=== PATIENT | male | born 1990 | race Caucasian/White ===

== ENCOUNTER 2016-12-04 14:24 | Day surgery (SDC) | payer MEDICARE, MEDICAID ==
[~2016-12-04] VITALS: Ht 185.4 cm; Wt 85.7 kg
[~2016-12-04 14:24] MED LIST: ALBU17IN INH; LEVA750T PO; PROA1AER IN
[2016-12-04] MEDS ORDERED: MORPHINE 4 MG/ML 1ML SYRINGE As Ordered ONE ×2 (14:52→18:39)
[2016-12-04 15:18] LABS: ANION GAP 8 MEQ/L (8-16); BLOOD UREA NITROGEN 11 MG/DL (7-18); CALCIUM LEVEL 8.9 MG/DL (8.5-10.1); CARBON DIOXIDE LEVEL 27 MEQ/L (21-32); CHLORIDE LEVEL 104 MEQ/L (98-107); CREATININE FOR GFR 0.88 MG/DL (0.70-1.30); GLOMERULAR FILTRATION RATE > 60.0 (>60); GLUCOSE, FASTING 103 MG/DL (70-105); POTASSIUM SERUM 3.7 MEQ/L (3.5-5.1); SODIUM LEVEL 139 MEQ/L (136-145)
--- NOTE | 2016-12-04 15:40 | REP ---
LEFT ANKLE SERIES: Four views of the left ankle performed. There is a comminuted fracture of the distal tibia medial aspect as well as a comminuted fracture of the distal fibula, with lateral displacement and angulation of the more distal structures. The ankle mortise is disrupted. IMPRESSION: Comminuted fractures distal tibia and fibula with lateral displacement and angulation. Ankle mortise is disrupted. Signed by Humberto Zaidi MD 12/04/2016 05:13 P
[2016-12-04 15:46] LABS: BASO # 0.4 K/mm3 (0.0-0.2); BASO % 1.5 % (0.0-1.0); EOS # 0.6 K/mm3 (0.0-0.50); EOS % 2.3 % (0.0-3.0); LARGE UNSTAINED CELL # 0.2 K/mm3 (0.0-0.4); LARGE UNSTAINED CELL % 0.6 % (0.0-4.0); LYMPH # 2.5 K/mm3 (1.5-6.5); LYMPH % 9.3 % (24.0-44.0); MEAN CORPUSCULAR HEMOGLOBIN 29.7 pg (27.0-33.0); MEAN CORPUSCULAR HGB CONC 33.3 g/dl (32.0-36.5); MEAN CORPUSCULAR VOLUME 89.1 fl (80.0-96.0); MONO # 1.3 K/mm3 (0.0-0.8); MONO % 5.2 % (0.0-5.0); NEUTROPHILS # 20.5 K/mm3 (1.8-7.7); NEUTROPHILS % 81.1 % (36.0-66.0); PLATELET COUNT, AUTOMATED 279 k/mm3 (150-450); RED CELL DISTRIBUTION WIDTH 14.2 % (11.5-14.5); WHITE BLOOD COUNT 25.2 K/mm3 (4.0-10.0)
[2016-12-04] MEDS ORDERED: fentaNYL 100 MCG/2 ML INJECTION (J3010) As Ordered ONE ×3 (16:01→20:48)
--- NOTE | 2016-12-04 17:31 | REP ---
CT study of the left ankle without contrast: History: Trimalleolar ankle fracture. Findings: Helical scanning acquired through splint material demonstrates a comminuted trimalleolar ankle fracture. The talus is subluxed posteriorly relative to the tibia. A posterior malleolar fracture is seen in the distal tibia with slight comminution. There is a comminuted medial malleolar fracture and a comminuted distal fibular fracture. There is a triangular intraarticular fracture fragment in the tibiotalar articulation. This measures 8.5 mm anterior to posterior x 2 mm cranial to caudal x 6.5 mm medial to lateral. There are at least two other tiny wafer thin intraarticular fragments in the anterior aspect of the ankle joint. The fibular fracture shows significant overriding. The proximal fragment abuts the talar dome. Coronal reformatted images demonstrate that there is lateral subluxation as well at the ankle articulation. Periarticular swelling is seen. No tarsal fracture is appreciated. Impression: There is a very comminuted and displaced trimalleolar fracture subluxation with several intra-articular bone fragments as described above. Signed by Rodriguez Vidal MD 12/04/2016 05:38 P
[2016-12-04] MEDS ORDERED: BUPIVACAINE/EPIN 0.25% 30 ML VIAL As Ordered ONE (19:28)
[2016-12-04] MEDS ORDERED: CLINDAMYCIN 600 MG/50 ML PREMIX BAG As Ordered ONE (19:28)
[2016-12-04] MEDS ORDERED: ceFAZolin 1GM INJ (J0690) As Ordered ONE (19:40)
--- NOTE | 2016-12-04 20:11 | EDDOCDS ---
Physician Documentation [facility] Name: Peña Parekh Age: 26 yrs Sex: Male : 1990 Arrival Date: 12/04/2016 Time: 14:24 Bed 11 Private MD: NO PRIMARY PHYSICIAN, . Disposition: 12/04 18:32 I have independently interviewed and examined the patient, and I agree with the br1 investigation, diagnosis and treatment plan as documented by the Resident. Disposition: 12/04/16 18:19 Hospitalization ordered by Christopher Guajardo for Inpatient Admission. Preliminary diagnosis is Displaced trimalleolar fracture of left lower leg. - Bed requested for M PED. - Status is Inpatient Admission. mlc - Condition is Stable. - Problem is new. - Symptoms are unchanged. Historical: - Allergies: Amoxicillin; PENICILLINS; - Home Meds: 1. albuterol sulfate 90 mcg/actuation Inhl HFAA 3 puffs every 4-6 hours - PMHx: Cystic Fibrosis; - PSHx: Adenoidectomy; Tonsillectomy; Ear Tubes; - Social history: Smoking status: Patient uses tobacco products, heavy tobacco smoker. No barriers to communication noted, The patient speaks fluent American, Speaks appropriately for age. - Family history: Not pertinent. - : The pt / caregiver states he / she is not on anticoagulants. Home medication list is obtained from the patient. - Exposure Risk Screening:: None identified. Vital Signs: 14:27 BP 157 / 87; Pulse 88; Resp 18; Temp 97.3(O); Pulse Ox 97% on R/A; Weight 85.73 kg / elp 189 lbs (R); Height 6 ft. 1 in. (185.42 cm) (R); Pain 10/10; 16:06 BP 142 / 84; Pulse 66; Resp 20; Pulse Ox 99% on R/A; Pain 10/10; jc4 16:26 Pulse 100 MON; Pulse Ox 96% ; ja5 16:27 Pulse 86 MON; Pulse Ox 97% ; ja5 16:27 BP 148 / 77 (auto/); ja5 16:28 BP 142 / 78 (auto/); ja5 16:30 Pain 10/10; jc4 16:45 Pulse 76 MON; Pulse Ox 98% ; ja5 17:33 BP 118 / 68 (auto/); ja5 17:48 BP 125 / 74 (auto/); mlc 17:48 Pulse 62 MON; Pulse Ox 97% ; mlc 18:40 BP 125 / 74 (auto/); mlc 18:40 Pulse 62 MON; Pulse Ox 97% ; mlc 19:23 BP 128 / 74; Pulse 57; Resp 16; Temp 99.2(TE); Pulse Ox 97% ; Pain 10/10; mlc 19:48 BP 133 / 79; Pulse 64; Resp 18; Temp 98.6; Pulse Ox 98% ; hs1 14:27 Body Mass Index 24.94 (85.73 kg, 185.42 cm) elp Procedures: 16:28 Joint Reduction: of the left ankle, using traction, manipulation. jo4 16:28 Joint Reduction: Immobilized with Plaster stirrup. Patient tolerated well. jo4 16:30 Fracture care/splinting: (Stabilizing Care) Splint applied to left leg and left ankle jo4 using tawnya wrap, Plaster stirrup. applied by Dr. Ruelas. Examined by me, post splint application: neurovascular intact, brisk capillary refill noted, Patient tolerated well. MDM: 14:36 IV Saline Lock ordered. br1 14:37 morphine 4 mg IVP once ordered. br1 14:37 Undress patient ordered. br1 14:37 NS 0.9% 1000 ml IV at 150 mL/hr continuous ordered. br1 14:37 Ankle, Complete Ordered. EDMS 14:37 CBC with Diff Ordered. EDMS 14:37 BMP Ordered. EDMS 14:38 NOTHING BY MOUTH+DIET ordered. EDMS 15:32 BMP Reviewed. jo4 16:04 fentaNYL (PF) 100 mcg IVP once ordered. br1 16:28 fentaNYL (PF) 100 mcg IVP once ordered. jo4 16:28 Misc Automatic Drilling Machine Operator Order ordered. jo4 16:38 [facility] Order complete. lbd 16:40 CT-Ankle WITHOUT CONTRAST Ordered. EDMS 16:46 CBC with Diff Reviewed. br1 16:46 Ankle, Complete Reviewed. br1 16:59 Financial registration complete. gb 17:06 [facility] Payment Agreement was scanned into [employer] and attached to record. gb 17:57 BED REQUEST+ADM ordered. EDMS 18:36 morphine 4 mg IVP once ordered. jo4 18:50 Ankle, Ap-Lat Ordered. EDMS 19:47 Admission Orders was scanned into [employer] and attached to record. ar3 Administered Medications: 14:59 Drug: morphine 4 mg [morphine 4 mg/mL intravenous cartridge (1 mL)] Route: IVP; Site: jc4 right antecubital; 16:06 Follow up: BP 142 / 84; Pulse 66 bpm; Resp 20 bpm; Pulse Ox 99% RA; Pain 08/13 Adult jc4 14:59 Drug: NS 0.9% 1000 ml [sodium chloride 0.9 % intravenous solution] Route: IV; Rate: 150 jc4 mL/hr; Site: right antecubital; 16:21 Drug: fentaNYL (PF) 100 mcg [fentanyl (PF) 50 mcg/mL injection solution (2 mL)] Route: jc4 IVP; Site: right antecubital; 16:30 Follow up: Pain 08/13 Adult jc4 16:35 Drug: fentaNYL (PF) 100 mcg [fentanyl (PF) 50 mcg/mL injection solution (2 mL)] Route: ja5 IVP; Site: right antecubital; 18:45 Drug: morphine 4 mg [morphine 4 mg/mL intravenous cartridge (1 mL)] Route: IVP; Site: ead right antecubital; Signatures: Dispatcher [employer] EDMS Anabell Roth, Order Worker Unit lbd Kaitlyn Palacios, Reg Reg gb Kay Bolton RN RN [id number] Lonnie Ruelas MD MD br1 Abeba Sepulveda, PRACTICING MD ANESTHESIOLOGIST PRACTICING MD ANESTHESIOLOGIST ar3 Ros Avilez RN RN hs1 Brittany Linares RN RN mlc Oosthuizen, Jane, DO DO jo4 Aneta Griffith RN jc4 Leanne Martinez RN, Jessica RN ja5 The chart was reviewed and I authenticate all verbal orders and agree with the evaluation and treatment provided.Attachments: 17:06 [facility] Payment Agreement gb 19:47 Admission Orders ar3 MTDD
--- NOTE | 2016-12-04 20:11 | EDDOCDS ---
Nurse's Notes [facility] Name: Peña Parekh Age: 26 yrs Sex: Male : 1990 Arrival Date: 12/04/2016 Time: 14:24 Bed 11 Private MD: NO PRIMARY PHYSICIAN, . Diagnosis: Displaced trimalleolar fracture of left lower leg Presentation: 12/04 14:29 Presenting complaint: Patient states: jumped off roof after shoveling thinking it was hs1 going to be a soft landing and missed judged and did not land in snow. + deformity +pulses. The patients lower extremity has obvious swelling present on examination. The charge nurse has been notified. The patient has been moved to a treatment area. has a possible ankle defomity on examination. The patient has been moved to a treatment area. Adult Sepsis Screening: The patient does not have new or worsening altered mentation. Patient's respiratory rate is less than 22. Systolic blood pressure is greater than 100. Patient has a qSOFA score of 0- Negative Sepsis Screen. Suicide/Homicide risk assessment- the patient denies having any suicidal and/or homicidal ideations and does not present with any other emotional, behavioral or mental health complaints. Status: Patient is not a social services director or dependent. Transition of care: patient was not received from another setting of care. 14:29 Acuity: CLOVER Level 2 hs1 14:29 Method Of Arrival: Walkin/Carried/Asstd hs1 Triage Assessment: 14:31 General: Appears uncomfortable, Behavior is anxious, cooperative. Pain: Location: left hs1 medial ankle and anterior aspect of left ankle Pain currently is 10 out of 10 on a pain scale. HIV screening NA for this visit Offered previously. Respiratory: Airway is patent. Musculoskeletal: Capillary refill is sluggish Bony deformity noted of left ankle Reports. Historical: - Allergies: Amoxicillin; PENICILLINS; - Home Meds: 1. albuterol sulfate 90 mcg/actuation Inhl HFAA 3 puffs every 4-6 hours - PMHx: Cystic Fibrosis; - PSHx: Adenoidectomy; Tonsillectomy; Ear Tubes; - Social history: Smoking status: Patient uses tobacco products, heavy tobacco smoker. No barriers to communication noted, The patient speaks fluent Malian, Speaks appropriately for age. - Family history: Not pertinent. - : The pt / caregiver states he / she is not on anticoagulants. Home medication list is obtained from the patient. - Exposure Risk Screening:: None identified. Screenin:32 Screening information is obtained from the patient. Fall risk: No risks identified. hs1 Assistance ADL's: requires no assistance with activities of daily living. Abuse/DV Screen: The patient / caregiver reports he/she is: not in a situation that causes fear, pain or injury. Nutritional screening: No deficits noted. Advance Directives: There is no active DNR order. home support is adequate. Assessment: 14:56 General: Appears uncomfortable, Behavior is cooperative. Pain: Location: left medial ja5 ankle Pain currently is 10 out of 10 on a pain scale. Neurological: Level of Consciousness is awake, alert, Oriented to person, place, time. Cardiovascular: Capillary refill < 3 seconds. Cardiovascular: Pulses are all present. Left dorsalis pedis pulse present by doppler. Respiratory: Airway is patent Respiratory effort is even, unlabored. Derm: Skin is pink, warm & dry. Musculoskeletal: Swelling present in left medial ankle Signs and Symptoms of Compartment Syndrome:. 15:01 General: Left lower extremity is currently elevated with two pillows.. Musculoskeletal: ja5 Capillary refill < 3 seconds. 16:06 General: Pt lying on stretcher with left leg elevated on 2 pillows. Pt states that pain jc4 is not improved and is currently "10/10" at this time. IVF infusing well. Significant other at bedside. 16:36 General:. ja5 16:39 General: Splint placement with Lonnie Ruelas MD and Aniyha Wright DO done at ja5 bedside. Patient was given 100mcg fentanyl prior to procedure. Patient was still in pain after procedure and another 100 mcg of fentanyl was ordered. Patient is now resting, states that pain medication is helping. Family at bedside. . 17:40 General: Patient resting in stretcher with left leg elevated. He states that his pain ja5 is rising back up to a 7/10. . 19:23 General: Appears in no apparent distress, comfortable, Behavior is cooperative. mlc General: IV fluids infusing per order. . Pain: Pain currently is 10 out of 10 on a pain scale. Neurological: Level of Consciousness is awake, alert, Oriented to person, place, time. Cardiovascular: Capillary refill < 3 seconds in left toes. Respiratory: Airway is patent Respiratory effort is even, unlabored, Respiratory pattern is regular. 19:49 General: Appears in no apparent distress, comfortable, Behavior is cooperative. mlc Neurological: Level of Consciousness is awake, alert, Oriented to person, place, time. Respiratory: Airway is patent Respiratory effort is even, unlabored, Respiratory pattern is regular. Derm: Skin is pink, warm & dry. Vital Signs: 14:27 BP 157 / 87; Pulse 88; Resp 18; Temp 97.3(O); Pulse Ox 97% on R/A; Weight 85.73 kg (R); elp Height 6 ft. 1 in. (185.42 cm) (R); Pain 10/10; 16:06 BP 142 / 84; Pulse 66; Resp 20; Pulse Ox 99% on R/A; Pain 10/10; jc4 16:26 Pulse 100 MON; Pulse Ox 96% ; ja5 16:27 Pulse 86 MON; Pulse Ox 97% ; ja5 16:27 BP 148 / 77 (auto/); ja5 16:28 BP 142 / 78 (auto/); ja5 16:30 Pain 10/10; jc4 16:45 Pulse 76 MON; Pulse Ox 98% ; ja5 17:33 BP 118 / 68 (auto/); ja5 17:48 BP 125 / 74 (auto/); mlc 17:48 Pulse 62 MON; Pulse Ox 97% ; mlc 18:40 BP 125 / 74 (auto/); mlc 18:40 Pulse 62 MON; Pulse Ox 97% ; mlc 19:23 BP 128 / 74; Pulse 57; Resp 16; Temp 99.2(TE); Pulse Ox 97% ; Pain 10/10; mlc 19:48 BP 133 / 79; Pulse 64; Resp 18; Temp 98.6; Pulse Ox 98% ; hs1 14:27 Body Mass Index 24.94 (85.73 kg, 185.42 cm) elp Vitals: 14:27 Log In Time: December 04, 2016 at 14:25. RN notified that patient meets Red Flag elp criteria. ED Course: 14:26 Patient visited by Hui Beck PCA. elp 14:26 NO PRIMARY PHYSICIAN, . is Private Physician. elp 14:26 Patient moved to Waiting elp 14:27 Patient visited by Hui Beck PCA. elp 14:30 Triage Initiated hs1 14:33 Aneta Griffith RN is Primary Nurse. hs1 14:33 Patient moved to 11 hs1 14:43 Aniyah Wright DO is PHCP. jo4 14:44 Lonnie Ruelas MD is Attending Physician. jo4 14:51 BMP Sent. jc4 14:51 CBC with Diff Sent. jc4 15:00 Patient visited by Aneta Griffith RN. jc4 15:00 Inserted saline lock: 18 gauge in right antecubital area The patient tolerated the jc4 procedure well. 15:02 Patient visited by Mandy Bartlett RN. ja5 15:12 Patient visited by Aniyah Wright DO. jo4 15:12 Patient visited by Aniyah Wright DO. jo4 15:18 Patient visited by Lonnie Ruelas MD. br1 16:08 Patient visited by Aneta Griffith RN. jc4 16:14 Ankle, Complete Returned. EDMS 16:30 Assist provider with fracture care of left medial ankle. ja5 16:36 Patient visited by Mandy Bartlett RN. ja5 17:02 Primary Nurse role handed off by Aneta Griffith RN jc4 17:06 [facility] Payment Agreement was scanned into [employer] and attached to record. gb 17:14 Ankle, Complete Returned. EDMS 17:32 Patient visited by Bruna Riggs PCA. ct3 17:41 Patient visited by Mandy Bartlett RN. ja5 18:02 Patient visited by Kennedi Chicas. lr2 18:02 Warm blanket given. lr2 18:10 The patient / caregiver is instructed regarding the plan of care and ED course. Patient ead has correct armband on for positive identification. Placed in gown. Bed in low position. Call light in reach. Side rails up X2. Adult w/ patient. Pulse ox on. NIBP on. Warm blanket given. 18:16 CT-Ankle WITHOUT CONTRAST Returned. EDMS 18:18 Christopher Guajardo is Hospitalizing Provider. jo4 19:23 Brittany Linares,RN is Primary Nurse. mlc 19:25 Patient visited by Brittany Linares RN. mlc 19:47 Admission Orders was scanned into [employer] and attached to record. ar3 Administered Medications: 14:59 Drug: morphine 4 mg [morphine 4 mg/mL intravenous cartridge (1 mL)] Route: IVP; Site: jc4 right antecubital; 16:06 Follow up: BP 142 / 84; Pulse 66 bpm; Resp 20 bpm; Pulse Ox 99% RA; Pain 10 Adult 4 14:59 Drug: NS 0.9% 1000 ml [sodium chloride 0.9 % intravenous solution] Route: IV; Rate: 150 jc4 mL/hr; Site: right antecubital; 16:21 Drug: fentaNYL (PF) 100 mcg [fentanyl (PF) 50 mcg/mL injection solution (2 mL)] Route: jc4 IVP; Site: right antecubital; 16:30 Follow up: Pain 08/13 Adult 4 16:35 Drug: fentaNYL (PF) 100 mcg [fentanyl (PF) 50 mcg/mL injection solution (2 mL)] Route: ja5 IVP; Site: right antecubital; 18:45 Drug: morphine 4 mg [morphine 4 mg/mL intravenous cartridge (1 mL)] Route: IVP; Site: ead right antecubital; Order Results: Lab Order: CBC with Diff; SPEC'M 12/04/16 14:48 Test: WHITE BLOOD COUNT; Value: 25.2; Range: 4.0-10.0; Abnormal: Above high normal; Units: K/mm3; Status: F Test: RED BLOOD COUNT; Value: 5.04; Range: 4.30-6.10; Units: M/mm3; Status: F Test: HEMOGLOBIN; Value: 15.0; Range: 14.0-18.0; Units: g/dl; Status: F Test: HEMATOCRIT; Value: 44.9; Range: 42.0-52.0; Units: %; Status: F Test: MEAN CORPUSCULAR VOLUME; Value: 89.1; Range: 80.0-96.0; Units: fl; Status: F Test: MEAN CORPUSCULAR HEMOGLOBIN; Value: 29.7; Range: 27.0-33.0; Units: pg; Status: F Test: MEAN CORPUSCULAR HGB CONC; Value: 33.3; Range: 32.0-36.5; Units: g/dl; Status: F Test: RED CELL DISTRIBUTION WIDTH; Value: 14.2; Range: 11.5-14.5; Units: %; Status: F Test: PLATELET COUNT, AUTOMATED; Value: 279; Range: 150-450; Units: k/mm3; Status: F Test: NEUTROPHILS %; Value: 81.1; Range: 36.0-66.0; Abnormal: Above high normal; Units: %; Status: F Test: LYMPH %; Value: 9.3; Range: 24.0-44.0; Abnormal: Below low normal; Units: %; Status: F Test: MONO %; Value: 5.2; Range: 0.0-5.0; Abnormal: Above high normal; Units: %; Status: F Test: EOS %; Value: 2.3; Range: 0.0-3.0; Units: %; Status: F Test: BASO %; Value: 1.5; Range: 0.0-1.0; Abnormal: Above high normal; Units: %; Status: F Test: LARGE UNSTAINED CELL %; Value: 0.6; Range: 0.0-4.0; Units: %; Status: F Test: NEUTROPHILS #; Value: 20.5; Range: 1.8-7.7; Abnormal: Above high normal; Units: K/mm3; Status: F Test: LYMPH #; Value: 2.5; Range: 1.5-6.5; Units: K/mm3; Status: F Test: MONO #; Value: 1.3; Range: 0.0-0.8; Abnormal: Above high normal; Units: K/mm3; Status: F Test: EOS #; Value: 0.6; Range: 0.0-0.50; Abnormal: Above high normal; Units: K/mm3; Status: F Test: BASO #; Value: 0.4; Range: 0.0-0.2; Abnormal: Above high normal; Units: K/mm3; Status: F Test: LARGE UNSTAINED CELL #; Value: 0.2; Range: 0.0-0.4; Units: K/mm3; Status: F Lab Order: [facility]; SPEC'M 12/04/16 14:48 Test: GLUCOSE, FASTING; Value: 103; Range: 70-105; Units: MG/DL; Status: F Test: BLOOD UREA NITROGEN; Value: 11; Range: 7-18; Units: MG/DL; Status: F Test: CREATININE FOR GFR; Value: 0.88; Range: 0.70-1.30; Units: MG/DL; Status: F Test: GLOMERULAR FILTRATION RATE; Value: > 60.0; Range: >60; Status: F Test: SODIUM LEVEL; Value: 139; Range: 136-145; Units: MEQ/L; Status: F Test: POTASSIUM SERUM; Value: 3.7; Range: 3.5-5.1; Units: MEQ/L; Status: F Test: CHLORIDE LEVEL; Value: 104; Range: 98-107; Units: MEQ/L; Status: F Test: CARBON DIOXIDE LEVEL; Value: 27; Range: 21-32; Units: MEQ/L; Status: F Test: ANION GAP; Value: 8; Range: 8-16; Units: MEQ/L; Status: F Test: CALCIUM LEVEL; Value: 8.9; Range: 8.5-10.1; Units: MG/DL; Status: F Test Note: ; Units are mL/min/1.73 m2 Chronic Kidney Disease Staging per NKF: Stage I & II GFR >=60 Normal to Mildly Decreased Stage III GFR 30-59 Moderately Decreased Stage IV GFR 15-29 Severely Decreased Stage V GFR <15 Very Little GFR Left ESRD GFR <15 on SOFA COVER INSPECTOR Radiology Order: Ankle, Complete Test: Ankle, Complete REASON FOR EXAMINATION: Trauma; LEFT ANKLE SERIES:; ; Four views of the left ankle performed. There is a comminuted fracture of the; distal tibia medial aspect as well as a comminuted fracture of the distal fibula,; with lateral displacement and angulation of the more distal structures. The; ankle mortise is disrupted.; ; IMPRESSION:; ; Comminuted fractures distal tibia and fibula with lateral displacement and; angulation. Ankle mortise is disrupted.; ; ; Signed by; Humberto Zaidi MD 12/04/2016 05:13 P; Radiology Order: CT-Ankle WITHOUT CONTRAST Test: CT-Ankle WITHOUT CONTRAST REASON FOR EXAMINATION: TRAUNMA; CT study of the left ankle without contrast:; ; History: Trimalleolar ankle fracture.; ; Findings: Helical scanning acquired through splint material demonstrates a; comminuted trimalleolar ankle fracture. The talus is subluxed posteriorly; relative to the tibia. A posterior malleolar fracture is seen in the distal; tibia with slight comminution. There is a comminuted medial malleolar fracture; and a comminuted distal fibular fracture. There is a triangular intraarticular; fracture fragment in the tibiotalar articulation. This measures 8.5 mm anterior; to posterior x 2 mm cranial to caudal x 6.5 mm medial to lateral. There are at; least two other tiny wafer thin intraarticular fragments in the anterior aspect; of the ankle joint. The fibular fracture shows significant overriding. The; proximal fragment abuts the talar dome. Coronal reformatted images demonstrate; that there is lateral subluxation as well at the ankle articulation.; Periarticular swelling is seen. No tarsal fracture is appreciated.; ; Impression:; ; There is a very comminuted and displaced trimalleolar fracture subluxation with; several intra-articular bone fragments as described above.; ; ; Signed by; Rodriguez Vidal MD 12/04/2016 05:38 P; Outcome: 18:19 Decision to Hospitalize by Provider. jo4 19:49 Discharge Assessment: Patient awake, alert and oriented x 3. No cognitive and/or mlc functional deficits noted. Patient verbalized understanding of disposition instructions. patient administered narcotics - yes. Patient was admitted to the hospital or transferred to another facility. The following High Risk Discharge criteria are identified: None. Admitted to OR accompanied by nurse, accompanied by tech, via stretcher, with chart. Condition: good Condition: stable. CT Study completed. Property :Personal belongings accompany Pt. 20:10 [place]. [facility] [place] Signatures: Dispatcher [employer] EDMS Kaitlyn Palacios, Reg Reg gb Lonnie Ruelas MD MD br1 Abeba Sepulveda, MAIL DELIVERER MAIL DELIVERER ar3 Ros Avilez RN RN hs1 Aneta Griffith RN RN jc4 Bruna Riggs, MAIL DELIVERER MAIL DELIVERER ct3 Hui eBck, MAIL DELIVERER MAIL DELIVERER elp Leanne MartinezRN RN Brittany Ivy RN RN [facility] Aniyah Wright DO DO jo4 Mandy BartlettRN RN ja5 Kennedi Chicas lr2 Corrections: (The following items were deleted from the chart) 16:54 16:39 General: Splint placement with Dr. Ruelas and Dr. Wright done at bedside. estelle Patient was given 100mcg fentanyl prior to procedure. Patient was still in pain after procedure and another 100 mcg of fentanyl was ordered. Patient is now resting, states that pain medication is helping. Family at bedside. . estelle 16:55 16:30 Assist provider with reduction of left ankle using manipulation, Performed by estelle mccabe MTDTariq
[2016-12-04] MEDS ORDERED: PROPOFOL 200 MG/20 ML VIAL As Ordered ONE ×4 (20:48→21:37)
[2016-12-04] MEDS ORDERED: MIDAZOLAM INJ 2 MG/2 ML VIAL (J2250) As Ordered ONE (20:48)
[2016-12-04] MEDS ORDERED: BUPIVACAINE/EPIN 0.25% 30 ML VIAL XX ONE (21:10)
[2016-12-04] MEDS ORDERED: CLINDAMYCIN INJ 900MG/6ML VIAL XX ONE (21:10)
[2016-12-04] MEDS ORDERED: LR 1,000 ML IV SCH (22:30)
[2016-12-04] MEDS ORDERED: fentaNYL 100 MCG/2 ML INJECTION (J3010) IV PRN (22:30)
[2016-12-04] MEDS ORDERED: PROMETHAZINE INJ 25 MG/ML VIAL (J2550) IV PRN (22:30)
[2016-12-04] MEDS ORDERED: ONDANSETRON 4MG/2ML VIAL (J2405) IV PRN (22:30)
[2016-12-04] MEDS ORDERED: D5W/LR 1,000 ML IV SCH (22:30)
[2016-12-04] MEDS ORDERED: PERCOCET 5MG/325MG TAB PO PRN ×2 (22:30)
[2016-12-04] MEDS ORDERED: ALBUTEROL 90 MCG/ACT 8GM HFA INHALER INH PRN (22:30)
[2016-12-04] MEDS ORDERED: MORPHINE 2 MG/ML 1ML SYRINGE IV PRN (22:30)
[2016-12-04] MEDS ORDERED: HYDROmorphone HCL 1 MG/ML SYRINGE (J1170) IV PRN (22:30)
[2016-12-04 23:00] VITALS: BP 115/57
[2016-12-04 23:30] VITALS: BP 111/62
[2016-12-05] MEDS: DOCUSATE SODIUM 100 MG CAP PO SCH ×2 (00:21→08:21)
[2016-12-05] MEDS: ASCORBIC ACID 500 MG TAB PO SCH ×2 (00:21→08:22)
--- NOTE | 2016-12-05 00:22 | RO ---
DATE OF PROCEDURE: 12/04/2016 PREOPERATIVE DIAGNOSIS: Left ankle trimalleolar fracture. POSTOPERATIVE DIAGNOSIS: Left ankle trimalleolar fracture. PROCEDURE PERFORMED: Open reduction internal fixation of left ankle trimalleolar fracture-dislocation, fixation of the medial malleolus and lateral malleolus. SURGEON: Dr. White FASTENER SEWING MACHINE OPERATOR: ANESTHESIA: Dr. Ariza ESTIMATED BLOOD LOSS: Less than 50 mL. Spinal anesthesia was utilized. No complications. No tourniquet inflated. COMPONENTS USED: Include Synthes 7-hole one-third tubular plate and the appropriate screws. On the medial malleolus, we utilized 4.0 cannulated screws , 38 mm times two with washers. Consent reviewed in detail with the patient including a pablo discussion of the procedure proposed, alternatives including doing nothing and risks including, but not limited to, pain, failure, stiffness, post-traumatic arthritis, limp, infection, need for more surgery and other issues. The patient agreed to proceed with surgery. DESCRIPTION OF PROCEDURE: Identified in the holding area, site and side verified, brought to the operating room, spinal anesthesia was administered. He was positioned for exposure of the left lower extremity. Tourniquet was not inflated. He was prepped and draped. Once we began the procedure, we outlined the incision using a marking pen, infiltrated with 0.25% Marcaine with epinephrine at the lateral aspect of medial malleolus as well. A 3 cm incision over the medial malleolus was utilized and a 10 cm incision over the lateral malleolus was utilized. This was developed down through skin and subcuticular tissues to the surface of the fibula bone. Next, there was some small comminuted fragments, and these were devitalized and they were discarded. Next, I was able to reduce the fibula by using the fracture reduction clamps, and I was able to place an AP lag screw . We visualized this portion of the reduction using fluoroscopy and reduction of the fibula seemed to anatomically reduce the medial malleolus. Next, a 7-hole plate was selected, and I drilled and placed the appropriate cortical and cancellous screws. Cortical proximal and cancellous distal, three dual cortices screw above the fracture and three below the fracture, cancellous. Next, once this was accomplished, we again obtained x-rays, including a lateral x-ray. Lateral x-ray revealed reduction of the posterior malleolar component anatomically. Next, irrigation was accomplished. Next, attention was turned to the medial malleolus, incision was made with a 15 blade knife, anteromedial to the medial malleolus and developed down through skin and subcuticular tissues. The deltoid ligament was significantly strained and injured, and it was split to allow exposure of the medial malleolar fragment. The medial malleolar fragment had been reasonably reduced by reduction of the fibula, so it was further reduced with a Hayti and then I passed two guidewires through the medial malleolus into the proximal fragment of the distal tibia. Next, these were measured for a size 38 screws and I overdrilled and placed size 38 mm cancellous screws, transfixing the medial malleolus. Final fluoroscopic images were obtained. The mortise was found to be reduced. The fracture seemed to be nearly anatomically reduced. Wounds were irrigated, closed with interrupted stitch and samia, sterile dressing was applied, cast applied. The patient was moved to the recovery room at the conclusion of case, having tolerated the case well. The patient received preoperative Kefzol antibiotics. DMITRI
[2016-12-05 00:30] VITALS: BP 140/83
[2016-12-05] MEDS: PERCOCET 5MG/325MG TAB PO PRN ×3 (00:36→08:23)
[2016-12-05 01:30] VITALS: BP 123/57
[2016-12-05 02:30] VITALS: BP 123/55
[2016-12-05] MEDS: HYDROmorphone HCL 1 MG/ML SYRINGE (J1170) IV PRN ×2 (03:43→06:16)
[2016-12-05 04:00] VITALS: BP 124/68
[2016-12-05] MEDS ORDERED: PERC5TAB6 PO (05:55)
[2016-12-05] MEDS ORDERED: ASPI325T PO (05:55)
[2016-12-05 07:12] LABS: BASO # 0.1 K/mm3 (0.0-0.2); BASO % 0.4 % (0.0-1.0); EOS # 0.5 K/mm3 (0.0-0.50); EOS % 2.7 % (0.0-3.0); LARGE UNSTAINED CELL # 0.2 K/mm3 (0.0-0.4); LARGE UNSTAINED CELL % 1.2 % (0.0-4.0); LYMPH # 2.7 K/mm3 (1.5-6.5); LYMPH % 15.3 % (24.0-44.0); MEAN CORPUSCULAR HEMOGLOBIN 29.2 pg (27.0-33.0); MEAN CORPUSCULAR HGB CONC 32.8 g/dl (32.0-36.5); MEAN CORPUSCULAR VOLUME 89.1 fl (80.0-96.0); MONO # 1.1 K/mm3 (0.0-0.8); MONO % 6.2 % (0.0-5.0); NEUTROPHILS # 13.1 K/mm3 (1.8-7.7); NEUTROPHILS % 74.2 % (36.0-66.0); PLATELET COUNT, AUTOMATED 223 k/mm3 (150-450); RED CELL DISTRIBUTION WIDTH 13.3 % (11.5-14.5); WHITE BLOOD COUNT 17.7 K/mm3 (4.0-10.0)
[2016-12-05 08:00] VITALS: BP 146/74
--- NOTE | 2016-12-05 08:30 | REP ---
LEFT ANKLE SERIES: Six views intraoperative. HISTORY: Left ankle fracture. Fluoroscopy time is reported as 31 seconds. FINDINGS: A sequence of six fluoroscopically obtained last image hold spot images of the left ankle document open reduction and internal fixation of the trimalleolar left ankle fracture dislocation in good anatomic alignment. Screw plate fixation device is seen in the distal fibula and two metallic screws are seen in the medial malleolus. The ankle mortise is well aligned. Signed by Rodriguez Vidal MD 12/05/2016 08:41 A
--- NOTE | 2016-12-05 08:39 | REP ---
Left ankle series: Two views. History: Evaluate hardware. Comparison study December 04, 2016 showed a trimalleolar comminuted fracture dislocation of the left ankle. Findings: AP and lateral views obtained in plaster demonstrate screw plate fixation of the distal fibula and medial malleolar screws. The ankle mortise is intact. The fracture is reduced. There is some lateral and medial skin samia. Diffuse mild soft tissue swelling. Signed by Rodriguez Vidal MD 12/05/2016 08:41 A
--- NOTE | 2016-12-05 17:27 | ER ---
DATE OF CONSULTATION: 12/04/2016 REASON FOR CONSULTATION: Left ankle pain. HISTORY OF PRESENT ILLNESS: This is a 26-year-old male with a history of cystic fibrosis and smoking two packs of cigarettes daily who was cleaning the snow off of his garage. He admitted that he jumped off the garage and missed the pile of snow. In fact he admitted that he was trying to do a front flip off the garage, missed the pile of snow and hit the ground, and injured the ankle on the left side. He is disabled he says because of a learning disability and because of his cystic fibrosis. Admits he does not normally take pain control medications. He does use albuterol inhaler from time to time. He has had a number of bouts of pneumonia. He is not currently short of breath. He is not complaining of numbness or tingling, only of ankle pain on the left side. He is not complaining of back pain or neck pain right now. I have reviewed nursing notes and medical records as provided by the ER. The patient was accompanied to the emergency room (ER) by spouse. REVIEW OF SYSTEMS: 12-point review of systems negative day. SOCIAL HISTORY: Reports two pack smoking history. MEDICATIONS: Albuterol nebulizers as needed for wheeze. PAST SURGICAL HISTORY: Negative. ALLERGIES: PENICILLIN causes hives, KEFZOL has been tolerated in the past. IMAGING STUDIES: There is a fracture/dislocation of the left ankle with a posterior malleolar component. CT scan also reviewed. There is a comminuted trimalleolar fracture. The posterior malleolar fragment is less than 10%. IMPRESSION: Left ankle fracture/dislocation in a 26-year-old male. RECOMMENDATIONS: Recommendations include open reduction internal fixation of the left ankle fracture/dislocation. I reviewed the consent document with the patient including a pablo discussion of the pathology involved, the procedure proposed, alternatives including doing nothing, risks including but not limited to pain, failure, stiffness, infection, need for more surgery, post-traumatic arthritis, and other issues. I advised the patient also to quit smoking. I advised the patient to have spinal anesthesia for the case. I coordinated the patient's care and the CT imaging with the ER personnel. I coordinated the patient's surgical scheduling with the OR personnel and anesthesia team. I had a discussion with Dr. Ariza, the anesthesiologist with respect to anesthetic management of this patient with a spinal anesthesia and his cystic fibrosis. 1 hour was invested in the patient's workup and preoperative preparation, more than 50% of which was [id number] time. For further details please refer to medical record.
--- NOTE | 2016-12-06 21:11 | EDDOCDS ---
Nurse's Notes [facility] Name: Peña Parekh Age: 26 yrs Sex: Male : 1990 Arrival Date: 12/04/2016 Time: 14:24 Bed 11 Private MD: NO PRIMARY PHYSICIAN, . Diagnosis: Displaced trimalleolar fracture of left lower leg Presentation: 12/04 14:29 Presenting complaint: Patient states: jumped off roof after shoveling thinking it was hs1 going to be a soft landing and missed judged and did not land in snow. + deformity +pulses. The patients lower extremity has obvious swelling present on examination. The charge nurse has been notified. The patient has been moved to a treatment area. has a possible ankle defomity on examination. The patient has been moved to a treatment area. Adult Sepsis Screening: The patient does not have new or worsening altered mentation. Patient's respiratory rate is less than 22. Systolic blood pressure is greater than 100. Patient has a qSOFA score of 0- Negative Sepsis Screen. Suicide/Homicide risk assessment- the patient denies having any suicidal and/or homicidal ideations and does not present with any other emotional, behavioral or mental health complaints. Status: Patient is not a managed services sales consultant or dependent. Transition of care: patient was not received from another setting of care. 14:29 Acuity: CLOVER Level 2 hs1 14:29 Method Of Arrival: Walkin/Carried/Asstd hs1 Triage Assessment: 14:31 General: Appears uncomfortable, Behavior is anxious, cooperative. Pain: Location: left hs1 medial ankle and anterior aspect of left ankle Pain currently is 10 out of 10 on a pain scale. HIV screening NA for this visit Offered previously. Respiratory: Airway is patent. Musculoskeletal: Capillary refill is sluggish Bony deformity noted of left ankle Reports. Historical: - Allergies: Amoxicillin; PENICILLINS; - Home Meds: 1. albuterol sulfate 90 mcg/actuation Inhl HFAA 3 puffs every 4-6 hours - PMHx: Cystic Fibrosis; - PSHx: Adenoidectomy; Tonsillectomy; Ear Tubes; - Social history: Smoking status: Patient uses tobacco products, heavy tobacco smoker. No barriers to communication noted, The patient speaks fluent Vincentian, Speaks appropriately for age. - Family history: Not pertinent. - : The pt / caregiver states he / she is not on anticoagulants. Home medication list is obtained from the patient. - Exposure Risk Screening:: None identified. Screenin:32 Screening information is obtained from the patient. Fall risk: No risks identified. hs1 Assistance ADL's: requires no assistance with activities of daily living. Abuse/DV Screen: The patient / caregiver reports he/she is: not in a situation that causes fear, pain or injury. Nutritional screening: No deficits noted. Advance Directives: There is no active DNR order. home support is adequate. Assessment: 14:56 General: Appears uncomfortable, Behavior is cooperative. Pain: Location: left medial ja5 ankle Pain currently is 10 out of 10 on a pain scale. Neurological: Level of Consciousness is awake, alert, Oriented to person, place, time. Cardiovascular: Capillary refill < 3 seconds. Cardiovascular: Pulses are all present. Left dorsalis pedis pulse present by doppler. Respiratory: Airway is patent Respiratory effort is even, unlabored. Derm: Skin is pink, warm & dry. Musculoskeletal: Swelling present in left medial ankle Signs and Symptoms of Compartment Syndrome:. 15:01 General: Left lower extremity is currently elevated with two pillows.. Musculoskeletal: ja5 Capillary refill < 3 seconds. 16:06 General: Pt lying on stretcher with left leg elevated on 2 pillows. Pt states that pain jc4 is not improved and is currently "10/10" at this time. IVF infusing well. Significant other at bedside. 16:36 General:. ja5 16:39 General: Splint placement with Lonnie Ruelas MD and Aniyah Wright DO done at ja5 bedside. Patient was given 100mcg fentanyl prior to procedure. Patient was still in pain after procedure and another 100 mcg of fentanyl was ordered. Patient is now resting, states that pain medication is helping. Family at bedside. . 17:40 General: Patient resting in stretcher with left leg elevated. He states that his pain ja5 is rising back up to a 7/10. . 19:23 General: Appears in no apparent distress, comfortable, Behavior is cooperative. mlc General: IV fluids infusing per order. . Pain: Pain currently is 10 out of 10 on a pain scale. Neurological: Level of Consciousness is awake, alert, Oriented to person, place, time. Cardiovascular: Capillary refill < 3 seconds in left toes. Respiratory: Airway is patent Respiratory effort is even, unlabored, Respiratory pattern is regular. 19:49 General: Appears in no apparent distress, comfortable, Behavior is cooperative. mlc Neurological: Level of Consciousness is awake, alert, Oriented to person, place, time. Respiratory: Airway is patent Respiratory effort is even, unlabored, Respiratory pattern is regular. Derm: Skin is pink, warm & dry. Vital Signs: 14:27 BP 157 / 87; Pulse 88; Resp 18; Temp 97.3(O); Pulse Ox 97% on R/A; Weight 85.73 kg (R); elp Height 6 ft. 1 in. (185.42 cm) (R); Pain 10/10; 16:06 BP 142 / 84; Pulse 66; Resp 20; Pulse Ox 99% on R/A; Pain 10/10; jc4 16:26 Pulse 100 MON; Pulse Ox 96% ; ja5 16:27 Pulse 86 MON; Pulse Ox 97% ; ja5 16:27 BP 148 / 77 (auto/); ja5 16:28 BP 142 / 78 (auto/); ja5 16:30 Pain 10/10; jc4 16:45 Pulse 76 MON; Pulse Ox 98% ; ja5 17:33 BP 118 / 68 (auto/); ja5 17:48 BP 125 / 74 (auto/); mlc 17:48 Pulse 62 MON; Pulse Ox 97% ; mlc 18:40 BP 125 / 74 (auto/); mlc 18:40 Pulse 62 MON; Pulse Ox 97% ; mlc 19:23 BP 128 / 74; Pulse 57; Resp 16; Temp 99.2(TE); Pulse Ox 97% ; Pain 10/10; mlc 19:48 BP 133 / 79; Pulse 64; Resp 18; Temp 98.6; Pulse Ox 98% ; hs1 14:27 Body Mass Index 24.94 (85.73 kg, 185.42 cm) elp Vitals: 14:27 Log In Time: December 04, 2016 at 14:25. RN notified that patient meets Red Flag elp criteria. ED Course: 14:26 Patient visited by Hui Beck PCA. elp 14:26 NO PRIMARY PHYSICIAN, . is Private Physician. elp 14:26 Patient moved to Waiting elp 14:27 Patient visited by Hui Beck PCA. elp 14:30 Triage Initiated hs1 14:33 Aneta Griffith RN is Primary Nurse. hs1 14:33 Patient moved to 11 hs1 14:43 Aniyah Wright DO is PHCP. jo4 14:44 Lonnie Ruelas MD is Attending Physician. jo4 14:51 BMP Sent. jc4 14:51 CBC with Diff Sent. jc4 15:00 Patient visited by Aneta Griffith RN. jc4 15:00 Inserted saline lock: 18 gauge in right antecubital area The patient tolerated the jc4 procedure well. 15:02 Patient visited by Mandy Bartlett RN. ja5 15:12 Patient visited by Aniyah Wright DO. jo4 15:12 Patient visited by Aniyah Wright DO. jo4 15:18 Patient visited by Lonnie Ruelas MD. br1 16:08 Patient visited by Aneta Griffith RN. jc4 16:14 Ankle, Complete Returned. EDMS 16:30 Assist provider with fracture care of left medial ankle. ja5 16:36 Patient visited by Mandy Bartlett RN. ja5 17:02 Primary Nurse role handed off by Aneta Griffith RN jc4 17:06 [facility] Payment Agreement was scanned into [employer] and attached to record. gb 17:14 Ankle, Complete Returned. EDMS 17:32 Patient visited by Bruna Riggs PCA. ct3 17:41 Patient visited by Mandy Bartlett RN. ja5 18:02 Patient visited by Kennedi Chicas. lr2 18:02 Warm blanket given. lr2 18:10 The patient / caregiver is instructed regarding the plan of care and ED course. Patient ead has correct armband on for positive identification. Placed in gown. Bed in low position. Call light in reach. Side rails up X2. Adult w/ patient. Pulse ox on. NIBP on. Warm blanket given. 18:16 CT-Ankle WITHOUT CONTRAST Returned. EDMS 18:18 Christopher Guajardo is Hospitalizing Provider. jo4 19:23 Brittany Linares,RN is Primary Nurse. mlc 19:25 Patient visited by Brittany Linares RN. mlc 19:47 Admission Orders was scanned into [employer] and attached to record. ar3 12/05 10:17 T-Sheet-- Draft Copy was scanned into [employer] and attached to record. gb 10:17 Radiology Report was scanned into [employer] and attached to record. gb Administered Medications: 12/04 14:59 Drug: morphine 4 mg [morphine 4 mg/mL intravenous cartridge (1 mL)] Route: IVP; Site: jc4 right antecubital; 16:06 Follow up: BP 142 / 84; Pulse 66 bpm; Resp 20 bpm; Pulse Ox 99% RA; Pain 10 Adult jc4 14:59 Drug: NS 0.9% 1000 ml [sodium chloride 0.9 % intravenous solution] Route: IV; Rate: 150 jc4 mL/hr; Site: right antecubital; 16:21 Drug: fentaNYL (PF) 100 mcg [fentanyl (PF) 50 mcg/mL injection solution (2 mL)] Route: jc4 IVP; Site: right antecubital; 16:30 Follow up: Pain 08/13 Adult 4 16:35 Drug: fentaNYL (PF) 100 mcg [fentanyl (PF) 50 mcg/mL injection solution (2 mL)] Route: ja5 IVP; Site: right antecubital; 18:45 Drug: morphine 4 mg [morphine 4 mg/mL intravenous cartridge (1 mL)] Route: IVP; Site: ead right antecubital; Order Results: Lab Order: CBC with Diff; SPEC'M 12/04/16 14:48 Test: WHITE BLOOD COUNT; Value: 25.2; Range: 4.0-10.0; Abnormal: Above high normal; Units: K/mm3; Status: F Test: RED BLOOD COUNT; Value: 5.04; Range: 4.30-6.10; Units: M/mm3; Status: F Test: HEMOGLOBIN; Value: 15.0; Range: 14.0-18.0; Units: g/dl; Status: F Test: HEMATOCRIT; Value: 44.9; Range: 42.0-52.0; Units: %; Status: F Test: MEAN CORPUSCULAR VOLUME; Value: 89.1; Range: 80.0-96.0; Units: fl; Status: F Test: MEAN CORPUSCULAR HEMOGLOBIN; Value: 29.7; Range: 27.0-33.0; Units: pg; Status: F Test: MEAN CORPUSCULAR HGB CONC; Value: 33.3; Range: 32.0-36.5; Units: g/dl; Status: F Test: RED CELL DISTRIBUTION WIDTH; Value: 14.2; Range: 11.5-14.5; Units: %; Status: F Test: PLATELET COUNT, AUTOMATED; Value: 279; Range: 150-450; Units: k/mm3; Status: F Test: NEUTROPHILS %; Value: 81.1; Range: 36.0-66.0; Abnormal: Above high normal; Units: %; Status: F Test: LYMPH %; Value: 9.3; Range: 24.0-44.0; Abnormal: Below low normal; Units: %; Status: F Test: MONO %; Value: 5.2; Range: 0.0-5.0; Abnormal: Above high normal; Units: %; Status: F Test: EOS %; Value: 2.3; Range: 0.0-3.0; Units: %; Status: F Test: BASO %; Value: 1.5; Range: 0.0-1.0; Abnormal: Above high normal; Units: %; Status: F Test: LARGE UNSTAINED CELL %; Value: 0.6; Range: 0.0-4.0; Units: %; Status: F Test: NEUTROPHILS #; Value: 20.5; Range: 1.8-7.7; Abnormal: Above high normal; Units: K/mm3; Status: F Test: LYMPH #; Value: 2.5; Range: 1.5-6.5; Units: K/mm3; Status: F Test: MONO #; Value: 1.3; Range: 0.0-0.8; Abnormal: Above high normal; Units: K/mm3; Status: F Test: EOS #; Value: 0.6; Range: 0.0-0.50; Abnormal: Above high normal; Units: K/mm3; Status: F Test: BASO #; Value: 0.4; Range: 0.0-0.2; Abnormal: Above high normal; Units: K/mm3; Status: F Test: LARGE UNSTAINED CELL #; Value: 0.2; Range: 0.0-0.4; Units: K/mm3; Status: F Lab Order: BMP; SPEC'M 12/04/16 14:48 Test: GLUCOSE, FASTING; Value: 103; Range: 70-105; Units: MG/DL; Status: F Test: BLOOD UREA NITROGEN; Value: 11; Range: 7-18; Units: MG/DL; Status: F Test: CREATININE FOR GFR; Value: 0.88; Range: 0.70-1.30; Units: MG/DL; Status: F Test: GLOMERULAR FILTRATION RATE; Value: > 60.0; Range: >60; Status: F Test: SODIUM LEVEL; Value: 139; Range: 136-145; Units: MEQ/L; Status: F Test: POTASSIUM SERUM; Value: 3.7; Range: 3.5-5.1; Units: MEQ/L; Status: F Test: CHLORIDE LEVEL; Value: 104; Range: 98-107; Units: MEQ/L; Status: F Test: CARBON DIOXIDE LEVEL; Value: 27; Range: 21-32; Units: MEQ/L; Status: F Test: ANION GAP; Value: 8; Range: 8-16; Units: MEQ/L; Status: F Test: CALCIUM LEVEL; Value: 8.9; Range: 8.5-10.1; Units: MG/DL; Status: F Test Note: ; Units are mL/min/1.73 m2 Chronic Kidney Disease Staging per NKF: Stage I & II GFR >=60 Normal to Mildly Decreased Stage III GFR 30-59 Moderately Decreased Stage IV GFR 15-29 Severely Decreased Stage V GFR <15 Very Little GFR Left ESRD GFR <15 on FITNESS AND WELLNESS DIRECTOR Radiology Order: Ankle, Complete Test: Ankle, Complete REASON FOR EXAMINATION: Trauma; LEFT ANKLE SERIES:; ; Four views of the left ankle performed. There is a comminuted fracture of the; distal tibia medial aspect as well as a comminuted fracture of the distal fibula,; with lateral displacement and angulation of the more distal structures. The; ankle mortise is disrupted.; ; IMPRESSION:; ; Comminuted fractures distal tibia and fibula with lateral displacement and; angulation. Ankle mortise is disrupted.; ; ; Signed by; Humberto Zaidi MD 12/04/2016 05:13 P; Radiology Order: CT-Ankle WITHOUT CONTRAST Test: CT-Ankle WITHOUT CONTRAST REASON FOR EXAMINATION: TRAUNMA; CT study of the left ankle without contrast:; ; History: Trimalleolar ankle fracture.; ; Findings: Helical scanning acquired through splint material demonstrates a; comminuted trimalleolar ankle fracture. The talus is subluxed posteriorly; relative to the tibia. A posterior malleolar fracture is seen in the distal; tibia with slight comminution. There is a comminuted medial malleolar fracture; and a comminuted distal fibular fracture. There is a triangular intraarticular; fracture fragment in the tibiotalar articulation. This measures 8.5 mm anterior; to posterior x 2 mm cranial to caudal x 6.5 mm medial to lateral. There are at; least two other tiny wafer thin intraarticular fragments in the anterior aspect; of the ankle joint. The fibular fracture shows significant overriding. The; proximal fragment abuts the talar dome. Coronal reformatted images demonstrate; that there is lateral subluxation as well at the ankle articulation.; Periarticular swelling is seen. No tarsal fracture is appreciated.; ; Impression:; ; There is a very comminuted and displaced trimalleolar fracture subluxation with; several intra-articular bone fragments as described above.; ; ; Signed by; Rodriguez Vidal MD 12/04/2016 05:38 P; Outcome: 18:19 Decision to Hospitalize by Provider. 4 19:49 Discharge Assessment: Patient awake, alert and oriented x 3. No cognitive and/or mlc functional deficits noted. Patient verbalized understanding of disposition instructions. patient administered narcotics - yes. Patient was admitted to the hospital or transferred to another facility. The following High Risk Discharge criteria are identified: None. Admitted to OR accompanied by nurse, accompanied by tech, via stretcher, with chart. Condition: good Condition: stable. CT Study completed. Property :Personal belongings accompany Pt. 20:10 Patient left the ED. mlc Signatures: Dispatcher [employer] EDMS Kaitlyn Palacios, Lonnie Rodrigez MD MD br1 Abeba Sepulveda, AIRFRAME TECHNICAL OFFICER AIRFRAME TECHNICAL OFFICER ar3 Ros Avilez RN RN hs1 Aneta Griffith RN RN jc4 Bruna Riggs, AIRFRAME TECHNICAL OFFICER AIRFRAME TECHNICAL OFFICER ct3 Hui Beck, AIRFRAME TECHNICAL OFFICER AIRFRAME TECHNICAL OFFICER elp Leanne Martinez RN RN ead Booth, Mandy, RN RN Aniyah Melvin DO DO jo4 Mandy Bartlett RN RN Kennedi Perez2 Corrections: (The following items were deleted from the chart) 16:54 16:39 General: Splint placement with Dr. Ruelas and Dr. Wright done at bedside. estelle Patient was given 100mcg fentanyl prior to procedure. Patient was still in pain after procedure and another 100 mcg of fentanyl was ordered. Patient is now resting, states that pain medication is helping. Family at bedside. . estelle 16:55 16:30 Assist provider with reduction of left ankle using manipulation, Performed by estelle mccabe Chart Complete MTDD
--- NOTE | 2016-12-06 21:11 | EDDOCDS ---
Physician Documentation [facility] Name: Peña Parekh Age: 26 yrs Sex: Male : 1990 Arrival Date: 12/04/2016 Time: 14:24 Bed 11 Private MD: NO PRIMARY PHYSICIAN, . Disposition: 12/04 18:32 I have independently interviewed and examined the patient, and I agree with the br1 investigation, diagnosis and treatment plan as documented by the Resident. Disposition: 12/04/16 18:19 Hospitalization ordered by Christopher Guajardo for Inpatient Admission. Preliminary diagnosis is Displaced trimalleolar fracture of left lower leg. - Bed requested for M PED. - Status is Inpatient Admission. mlc - Condition is Stable. - Problem is new. - Symptoms are unchanged. Historical: - Allergies: Amoxicillin; PENICILLINS; - Home Meds: 1. albuterol sulfate 90 mcg/actuation Inhl HFAA 3 puffs every 4-6 hours - PMHx: Cystic Fibrosis; - PSHx: Adenoidectomy; Tonsillectomy; Ear Tubes; - Social history: Smoking status: Patient uses tobacco products, heavy tobacco smoker. No barriers to communication noted, The patient speaks fluent Irish, Speaks appropriately for age. - Family history: Not pertinent. - : The pt / caregiver states he / she is not on anticoagulants. Home medication list is obtained from the patient. - Exposure Risk Screening:: None identified. Vital Signs: 14:27 BP 157 / 87; Pulse 88; Resp 18; Temp 97.3(O); Pulse Ox 97% on R/A; Weight 85.73 kg / elp 189 lbs (R); Height 6 ft. 1 in. (185.42 cm) (R); Pain 10/10; 16:06 BP 142 / 84; Pulse 66; Resp 20; Pulse Ox 99% on R/A; Pain 10/10; jc4 16:26 Pulse 100 MON; Pulse Ox 96% ; ja5 16:27 Pulse 86 MON; Pulse Ox 97% ; ja5 16:27 BP 148 / 77 (auto/); ja5 16:28 BP 142 / 78 (auto/); ja5 16:30 Pain 10/10; jc4 16:45 Pulse 76 MON; Pulse Ox 98% ; ja5 17:33 BP 118 / 68 (auto/); ja5 17:48 BP 125 / 74 (auto/); mlc 17:48 Pulse 62 MON; Pulse Ox 97% ; mlc 18:40 BP 125 / 74 (auto/); mlc 18:40 Pulse 62 MON; Pulse Ox 97% ; mlc 19:23 BP 128 / 74; Pulse 57; Resp 16; Temp 99.2(TE); Pulse Ox 97% ; Pain 10/10; mlc 19:48 BP 133 / 79; Pulse 64; Resp 18; Temp 98.6; Pulse Ox 98% ; hs1 14:27 Body Mass Index 24.94 (85.73 kg, 185.42 cm) elp Procedures: 16:28 Joint Reduction: of the left ankle, using traction, manipulation. jo4 16:28 Joint Reduction: Immobilized with Plaster stirrup. Patient tolerated well. jo4 16:30 Fracture care/splinting: (Stabilizing Care) Splint applied to left leg and left ankle jo4 using tawnya wrap, Plaster stirrup. applied by Dr. Ruelas. Examined by me, post splint application: neurovascular intact, brisk capillary refill noted, Patient tolerated well. MDM: 14:36 IV Saline Lock ordered. br1 14:37 morphine 4 mg IVP once ordered. br1 14:37 Undress patient ordered. br1 14:37 NS 0.9% 1000 ml IV at 150 mL/hr continuous ordered. br1 14:37 Ankle, Complete Ordered. EDMS 14:37 CBC with Diff Ordered. EDMS 14:37 BMP Ordered. EDMS 14:38 NOTHING BY MOUTH+DIET ordered. EDMS 15:32 BMP Reviewed. jo4 16:04 fentaNYL (PF) 100 mcg IVP once ordered. br1 16:28 fentaNYL (PF) 100 mcg IVP once ordered. jo4 16:28 Misc Atg Java Developer Order ordered. jo4 [facility]:38 [facility] Order complete. lbd 16:40 CT-Ankle WITHOUT CONTRAST Ordered. EDMS 16:46 CBC with Diff Reviewed. br1 16:46 Ankle, Complete Reviewed. br1 16:59 Financial registration complete. gb 17:06 [facility] Payment Agreement was scanned into [employer] and attached to record. gb 17:57 BED REQUEST+ADM ordered. EDMS 18:36 morphine 4 mg IVP once ordered. jo4 18:50 Ankle, Ap-Lat Ordered. EDMS 19:47 Admission Orders was scanned into [employer] and attached to record. ar3 12/05 10:17 T-Sheet-- Draft Copy was scanned into [employer] and attached to record. gb 10:17 Radiology Report was scanned into [employer] and attached to record. gb Administered Medications: 12/04 14:59 Drug: morphine 4 mg [morphine 4 mg/mL intravenous cartridge (1 mL)] Route: IVP; Site: jc4 right antecubital; 16:06 Follow up: BP 142 / 84; Pulse 66 bpm; Resp 20 bpm; Pulse Ox 99% RA; Pain 08/13 Adult 4 14:59 Drug: NS 0.9% 1000 ml [sodium chloride 0.9 % intravenous solution] Route: IV; Rate: 150 jc4 mL/hr; Site: right antecubital; 16:21 Drug: fentaNYL (PF) 100 mcg [fentanyl (PF) 50 mcg/mL injection solution (2 mL)] Route: jc4 IVP; Site: right antecubital; 16:30 Follow up: Pain 08/13 Adult [facility] 16:35 Drug: fentaNYL (PF) 100 mcg [fentanyl (PF) 50 mcg/mL injection solution (2 mL)] Route: ja5 IVP; Site: right antecubital; 18:45 Drug: morphine 4 mg [morphine 4 mg/mL intravenous cartridge (1 mL)] Route: IVP; Site: ead right antecubital; Signatures: Dispatcher [employer] EDMS Anabell Roth, Bacteriologist [employer] lbd Kaitlyn Palacios, Reg Reg gb Kay Bolton RN RN [id number] Lonnie Ruelas MD MD br1 Abeba Sepulveda, SPECIALTY THERAPIST SPECIALTY THERAPIST ar3 Ros Avilez RN RN hs1 Brittany LinaresRN RN Aniyah Melvin DO DO jo4 Aneta Griffith RN jc4 Leanne Martinez RN, ead Mandy Bartlett RN ja5 The chart was reviewed and I authenticate all verbal orders and agree with the evaluation and treatment provided.Attachments: 17:06 [facility] Payment Agreement gb 19:47 Admission Orders ar3 12/05 10:17 T-Sheet-- Draft Copy gb Chart Complete MTDD
--- NOTE | 2016-12-06 21:11 | EDDOCDS ---
Physician Documentation [facility] Name: Peña Parekh Age: 26 yrs Sex: Male : 1990 Arrival Date: 12/04/2016 Time: 14:24 Bed 11 Private MD: NO PRIMARY PHYSICIAN, . Disposition: 12/04 18:32 I have independently interviewed and examined the patient, and I agree with the br1 investigation, diagnosis and treatment plan as documented by the Resident. Disposition: 12/04/16 18:19 Hospitalization ordered by Christopher Guajardo for Inpatient Admission. Preliminary diagnosis is Displaced trimalleolar fracture of left lower leg. - Bed requested for M PED. - Status is Inpatient Admission. mlc - Condition is Stable. - Problem is new. - Symptoms are unchanged. Historical: - Allergies: Amoxicillin; PENICILLINS; - Home Meds: 1. albuterol sulfate 90 mcg/actuation Inhl HFAA 3 puffs every 4-6 hours - PMHx: Cystic Fibrosis; - PSHx: Adenoidectomy; Tonsillectomy; Ear Tubes; - Social history: Smoking status: Patient uses tobacco products, heavy tobacco smoker. No barriers to communication noted, The patient speaks fluent Czech, Speaks appropriately for age. - Family history: Not pertinent. - : The pt / caregiver states he / she is not on anticoagulants. Home medication list is obtained from the patient. - Exposure Risk Screening:: None identified. Vital Signs: 14:27 BP 157 / 87; Pulse 88; Resp 18; Temp 97.3(O); Pulse Ox 97% on R/A; Weight 85.73 kg / elp 189 lbs (R); Height 6 ft. 1 in. (185.42 cm) (R); Pain 10/10; 16:06 BP 142 / 84; Pulse 66; Resp 20; Pulse Ox 99% on R/A; Pain 10/10; jc4 16:26 Pulse 100 MON; Pulse Ox 96% ; ja5 16:27 Pulse 86 MON; Pulse Ox 97% ; ja5 16:27 BP 148 / 77 (auto/); ja5 16:28 BP 142 / 78 (auto/); ja5 16:30 Pain 10/10; jc4 16:45 Pulse 76 MON; Pulse Ox 98% ; ja5 17:33 BP 118 / 68 (auto/); ja5 17:48 BP 125 / 74 (auto/); mlc 17:48 Pulse 62 MON; Pulse Ox 97% ; mlc 18:40 BP 125 / 74 (auto/); mlc 18:40 Pulse 62 MON; Pulse Ox 97% ; mlc 19:23 BP 128 / 74; Pulse 57; Resp 16; Temp 99.2(TE); Pulse Ox 97% ; Pain 10/10; mlc 19:48 BP 133 / 79; Pulse 64; Resp 18; Temp 98.6; Pulse Ox 98% ; hs1 14:27 Body Mass Index 24.94 (85.73 kg, 185.42 cm) elp Procedures: 16:28 Joint Reduction: of the left ankle, using traction, manipulation. jo4 16:28 Joint Reduction: Immobilized with Plaster stirrup. Patient tolerated well. jo4 16:30 Fracture care/splinting: (Stabilizing Care) Splint applied to left leg and left ankle jo4 using tawnya wrap, Plaster stirrup. applied by Dr. Ruelas. Examined by me, post splint application: neurovascular intact, brisk capillary refill noted, Patient tolerated well. MDM: 14:36 IV Saline Lock ordered. br1 14:37 morphine 4 mg IVP once ordered. br1 14:37 Undress patient ordered. br1 14:37 NS 0.9% 1000 ml IV at 150 mL/hr continuous ordered. br1 14:37 Ankle, Complete Ordered. EDMS 14:37 CBC with Diff Ordered. EDMS 14:37 BMP Ordered. EDMS 14:38 NOTHING BY MOUTH+DIET ordered. EDMS 15:32 BMP Reviewed. jo4 16:04 fentaNYL (PF) 100 mcg IVP once ordered. br1 16:28 fentaNYL (PF) 100 mcg IVP once ordered. jo4 16:28 Misc Wire Harness Assembler Order ordered. jo4 [facility] complete. lbd 16:40 CT-Ankle WITHOUT CONTRAST Ordered. EDMS 16:46 CBC with Diff Reviewed. br1 16:46 Ankle, Complete Reviewed. br1 16:59 Financial registration complete. gb 17:06 [facility] Payment Agreement was scanned into [employer] and attached to record. gb 17:57 BED REQUEST+ADM ordered. EDMS 18:36 morphine 4 mg IVP once ordered. jo4 18:50 Ankle, Ap-Lat Ordered. EDMS 19:47 Admission Orders was scanned into [employer] and attached to record. ar3 12/05 10:17 T-Sheet-- Draft Copy was scanned into [employer] and attached to record. gb 10:17 Radiology Report was scanned into [employer] and attached to record. gb Administered Medications: 12/04 14:59 Drug: morphine 4 mg [morphine 4 mg/mL intravenous cartridge (1 mL)] Route: IVP; Site: jc4 right antecubital; 16:06 Follow up: BP 142 / 84; Pulse 66 bpm; Resp 20 bpm; Pulse Ox 99% RA; Pain 08/13 Adult 4 14:59 Drug: NS 0.9% 1000 ml [sodium chloride 0.9 % intravenous solution] Route: IV; Rate: 150 jc4 mL/hr; Site: right antecubital; 16:21 Drug: fentaNYL (PF) 100 mcg [fentanyl (PF) 50 mcg/mL injection solution (2 mL)] Route: jc4 IVP; Site: right antecubital; 16:30 Follow up: Pain 08/13 Adult [facility] 16:35 Drug: fentaNYL (PF) 100 mcg [fentanyl (PF) 50 mcg/mL injection solution (2 mL)] Route: ja5 IVP; Site: right antecubital; 18:45 Drug: morphine 4 mg [morphine 4 mg/mL intravenous cartridge (1 mL)] Route: IVP; Site: ead right antecubital; Signatures: Dispatcher [employer] EDMS Anabell Roth, Senior Financial Analyst Unit lbd Kaitlyn Palacios, Reg Reg gb Kay Bolton RN RN [id number] Lonnie Ruelas MD MD br1 Abeba Sepulveda, TABLEAU ANALYST TABLEAU ANALYST ar3 Ros Avilez RN RN hs1 Brittany LinaresRN RN Aniyah Melvin DO DO jo4 Aneta Griffith RN jc4 Leanne Martinez RN, ead Mandy Bartlett RN ja5 The chart was reviewed and I authenticate all verbal orders and agree with the evaluation and treatment provided.Attachments: 17:06 [facility] Payment Agreement gb 19:47 Admission Orders ar3 12/05 10:17 T-Sheet-- Draft Copy gb Chart Complete MTDD
== END 2016-12-05 11:15 | disposition home or self-care (01) ==
LOC: M ED 14:24 → M SDC 19:47 → M PED 22:51 → M SDC 12-05 11:15
PROVIDERS: ATTEND Orthopaedic Surgery
DX: S82.852A Displaced trimalleolar fracture of left lower leg, initial encounter for closed fracture (principal); W13.2XXA Fall from, out of or through roof, initial encounter; Y92.098 Other place in other non-institutional residence as the place of occurrence of the external cause; Y93.H1 Activity, digging, shoveling and raking; Y99.8 Other external cause status; E84.0 Cystic fibrosis with pulmonary manifestations; F32.9 Major depressive disorder, single episode, unspecified; F41.9 Anxiety disorder, unspecified; F17.210 Nicotine dependence, cigarettes, uncomplicated; Z88.0 Allergy status to penicillin; Z88.1 Allergy status to other antibiotic agents
CPT/HCPCS: 27822; 36415; 73600; 73610; 73700; 80048; 85025; 96374; 96375; 96376; 97116; 99285; C1776; J0690; J1170; J2250; J3010

== ENCOUNTER 2016-12-05 14:40 | Emergency (ER) | payer MEDICARE, MEDICAID ==
[~2016-12-05 14:40] MED LIST changes: +ASPI325T PO; +PERC5TAB6 PO
--- NOTE | 2016-12-05 15:28 | EDDOCDS ---
Physician Documentation [facility] Name: Peña Parekh Age: 26 yrs Sex: Male : 1990 Arrival Date: 12/05/2016 Time: 14:40 Bed I2 / M2 Private MD: NO PRIMARY PHYSICIAN, . Disposition: 12/05/16 15:21 Discharged to Home/Self Care. Impression: Hemorrhage due to internal orthopedic prosthetic devices, implants and grafts. - Condition is Stable. - Discharge Instructions: Cast or Splint Care, [id number]. - Medication Reconciliation, Local Pharmacy Hours form. - Follow up: Orthopaedics, [facility]; When: Upon discharge from the Emergency Department; Reason: Further diagnostic work-up, Recheck today's complaints, Continuance of care. - Problem is new. - Symptoms are unchanged. Historical: - Allergies: Amoxicillin; PENICILLINS; - Home Meds: 1. Percocet 5-325 mg Oral tab 1 tab every 6 hours 2. aspirin 325 mg Oral TbEC 1 tab once daily - PMHx: Cystic Fibrosis; - PSHx: Adenoidectomy; Tonsillectomy; Ear Tubes; left ankle surgery; - Social history: Smoking status: Patient uses tobacco products, heavy tobacco smoker. No barriers to communication noted, The patient speaks fluent [place]yan, Speaks appropriately for age, The patient lives. - Family history: Not pertinent. - : The pt / caregiver states he / she is not on anticoagulants. Home medication list is obtained from the patient. - Exposure Risk Screening:: None identified. Vital Signs: 12/05 14:42 BP 143 / 78; Pulse 107; Resp 18 S; Temp 97.7(O); Pulse Ox 98% on R/A; Weight 85.73 kg / gr2 189 lbs (R); Height 6 ft. 1 in. (185.42 cm) (R); Pain 5/10; 14:42 Body Mass Index 24.94 (85.73 kg, 185.42 cm) gr2 MDM: 15:16 Financial registration complete. hermila Signatures: Delonte Zambrano,RN RN Aneta SánchezRN RN Bakari Castillo PA PA btw Beck, Gabriela gjb MTDD
--- NOTE | 2016-12-05 15:28 | EDDOCDS ---
Nurse's Notes [facility] [place] Name: Peña Parekh Age: 26 yrs Sex: Male : 1990 Arrival Date: 12/05/2016 Time: 14:40 Bed I2 / M2 Private MD: NO PRIMARY PHYSICIAN, . Diagnosis: Hemorrhage due to internal orthopedic prosthetic devices, implants and grafts Presentation: 12/05 14:45 Presenting complaint: Patient states: released this morning from the hospital after a jo3 fracture repair. Blood was on cast prior to discharge and was outline with perm marker. At home, cast broke open and there is a significant amount of bleeding. Adult Sepsis Screening: The patient does not have new or worsening altered mentation. Patient's respiratory rate is less than 22. Systolic blood pressure is greater than 100. Patient has a qSOFA score of 0- Negative Sepsis Screen. Suicide/Homicide risk assessment- the patient denies having any suicidal and/or homicidal ideations and does not present with any other emotional, behavioral or mental health complaints. 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 Transition of care: patient was not received from another setting of care. 14:45 Acuity: CLVOER Level 3 jo3 14:45 Method Of Arrival: Walkin/Carried/Asstd jo3 Triage Assessment: 14:48 General: Appears in no apparent distress, Behavior is appropriate for age, cooperative. jo3 HIV screening NA for this visit. Neurological: Level of Consciousness is awake, alert, Oriented to person, place, time. Respiratory: Airway is patent Respiratory effort is even, unlabored. Musculoskeletal: cast to left foot. Obvious blood to plantar aspect. Historical: - Allergies: Amoxicillin; PENICILLINS; - Home Meds: 1. Percocet 5-325 mg Oral tab 1 tab every 6 hours 2. aspirin 325 mg Oral TbEC 1 tab once daily - PMHx: Cystic Fibrosis; - PSHx: Adenoidectomy; Tonsillectomy; Ear Tubes; left ankle surgery; - Social history: Smoking status: Patient uses tobacco products, heavy tobacco smoker. No barriers to communication noted, The patient speaks fluent [place]i, Speaks appropriately for age, The patient lives. - Family history: Not pertinent. - : The pt / caregiver states he / she is not on anticoagulants. Home medication list is obtained from the patient. - Exposure Risk Screening:: None identified. Screenin:00 Screening information is obtained from the patient. Fall risk: No risks identified. jmk Assistance ADL's: requires no assistance with activities of daily living. Abuse/DV Screen: The patient / caregiver reports he/she is: not in a situation that causes fear, pain or injury. Nutritional screening: No deficits noted. Advance Directives: Currently, there is no health care proxy. There is no active DNR order. There is no living will. There is no Power of Oil Agent. Advance directive information. home support is adequate. Assessment: 15:00 General: Appears NAD skin warm and dry color satisfactory. SLC in place to left leg. jmk [employer] toes less than 2 sec. posterior aspect of cast with old blood, not extending beyond marked lines. heel area supersaturated with dark red blood. Chux absorbing additional quantity of blood. leg elevated on 2 pillows. Vital Signs: 14:42 BP 143 / 78; Pulse 107; Resp 18 S; Temp 97.7(O); Pulse Ox 98% on R/A; Weight 85.73 kg gr2 (R); Height 6 ft. 1 in. (185.42 cm) (R); Pain 5/10; 14:42 Body Mass Index 24.94 (85.73 kg, 185.42 cm) gr2 Vitals: 14:42 Log In Time: December 05, 2016 at 14:42. gr2 ED Course: 14:41 Patient visited by Yesika Baker. gr2 14:41 Patient moved to Waiting gr2 14:42 NO PRIMARY PHYSICIAN, . is Private Physician. gr2 14:43 Patient visited by Yesika Baker. gr2 14:44 Patient moved to Pre RCE gr2 14:47 Triage Initiated jo3 14:49 Patient visited by Aneta Bear RN. jo3 14:51 Patient moved to I2 / M2 jo3 14:57 [facility]. btw 14:57 Nikolas Chambers MD is Attending Physician. btw 14:57 Patient visited by Bakari Tran PA. btw 15:[facility] btw 15:27 No IV's were initiated during this patient's visit. No procedures done that require jmk assistance. Order Results: There are currently no results for this order. Outcome: 15:21 Discharge ordered by Provider. btw 15:25 Discharge Assessment: Patient awake, alert and oriented x 3. No cognitive and/or arielk functional deficits noted. Patient verbalized understanding of disposition instructions. patient administered narcotics - no. The following High Risk Discharge criteria are identified: None. Discharged to home ambulatory. Condition: good. Discharge instructions given to patient, Instructed on discharge instructions, follow up and referral plans. Demonstrated understanding of instructions. No special radiology studies were completed. Property :Personal belongings accompany Pt. 15:27 Patient left the ED. claudia Signatures: Delonte Zambrano,RN RN Aneta SánchezRN RN jo3 Bakari Tran PA PA btw Yesika Baker gr2 MTDTariq
--- NOTE | 2016-12-07 16:28 | EDDOCDS ---
Physician Documentation [facility] Name: Peña Parekh Age: 26 yrs Sex: Male : 1990 Arrival Date: 12/05/2016 Time: 14:40 Bed I2 / M2 Private MD: NO PRIMARY PHYSICIAN, . Disposition: 12/05/16 15:21 Discharged to Home/Self Care. Impression: Hemorrhage due to internal orthopedic prosthetic devices, implants and grafts. - Condition is Stable. - Discharge Instructions: Cast or Splint Care, [id number]. - Medication Reconciliation, Local Pharmacy Hours form. - Follow up: Orthopaedics, [facility]; When: Upon discharge from the Emergency Department; Reason: Further diagnostic work-up, Recheck today's complaints, Continuance of care. - Problem is new. - Symptoms are unchanged. Historical: - Allergies: Amoxicillin; PENICILLINS; - Home Meds: 1. Percocet 5-325 mg Oral tab 1 tab every 6 hours 2. aspirin 325 mg Oral TbEC 1 tab once daily - PMHx: Cystic Fibrosis; - PSHx: Adenoidectomy; Tonsillectomy; Ear Tubes; left ankle surgery; - Social history: Smoking status: Patient uses tobacco products, heavy tobacco smoker. No barriers to communication noted, The patient speaks fluent [place], Speaks appropriately for age, The patient lives. - Family history: Not pertinent. - : The pt / caregiver states he / she is not on anticoagulants. Home medication list is obtained from the patient. - Exposure Risk Screening:: None identified. Vital Signs: 12/05 14:42 BP 143 / 78; Pulse 107; Resp 18 S; Temp 97.7(O); Pulse Ox 98% on R/A; Weight 85.73 kg / gr2 189 lbs (R); Height 6 ft. 1 in. (185.42 cm) (R); Pain 5/10; 14:42 Body Mass Index 24.94 (85.73 kg, 185.42 cm) gr2 MDM: 15:16 Financial registration complete. [facility] 15:43 [facility] Payment Agreement was scanned into [employer] and attached to record. b 12/06 10:09 T-Sheet-- Draft Copy was scanned into [employer] and attached to record. gb Signatures: Delonte Zambrano RN RN Kaitlyn Lanier Reg Reg gb Aneta BearRN RN jo3 Bakari Tran PA PA btw Kayla Goodwin The chart was reviewed and I authenticate all verbal orders and agree with the evaluation and treatment provided.Attachments: 12/05 15:43 [facility] Payment Agreement [email or web address] 12/06 10:09 T-Sheet-- Draft Copy gb Chart Complete MTDD
--- NOTE | 2016-12-07 16:28 | EDDOCDS ---
Physician Documentation [facility] Name: Peña Parekh Age: 26 yrs Sex: Male : 1990 Arrival Date: 12/05/2016 Time: 14:40 Bed I2 / M2 Private MD: NO PRIMARY PHYSICIAN, . Disposition: 12/05/16 15:21 Discharged to Home/Self Care. Impression: Hemorrhage due to internal orthopedic prosthetic devices, implants and grafts. - Condition is Stable. - Discharge Instructions: Cast or Splint Care, [id number]. - Medication Reconciliation, Local Pharmacy Hours form. - Follow up: Orthopaedics, [facility]; When: Upon discharge from the Emergency Department; Reason: Further diagnostic work-up, Recheck today's complaints, Continuance of care. - Problem is new. - Symptoms are unchanged. Historical: - Allergies: Amoxicillin; PENICILLINS; - Home Meds: 1. Percocet 5-325 mg Oral tab 1 tab every 6 hours 2. aspirin 325 mg Oral TbEC 1 tab once daily - PMHx: Cystic Fibrosis; - PSHx: Adenoidectomy; Tonsillectomy; Ear Tubes; left ankle surgery; - Social history: Smoking status: Patient uses tobacco products, heavy tobacco smoker. No barriers to communication noted, The patient speaks fluent Japanese, Speaks appropriately for age, The patient lives. - Family history: Not pertinent. - : The pt / caregiver states he / she is not on anticoagulants. Home medication list is obtained from the patient. - Exposure Risk Screening:: None identified. Vital Signs: 12/05 14:42 BP 143 / 78; Pulse 107; Resp 18 S; Temp 97.7(O); Pulse Ox 98% on R/A; Weight 85.73 kg / gr2 189 lbs (R); Height 6 ft. 1 in. (185.42 cm) (R); Pain 5/10; 14:42 Body Mass Index 24.94 (85.73 kg, 185.42 cm) gr2 MDM: 15:16 Financial registration complete. banner 15:43 [facility] Payment Agreement was scanned into [employer] and attached to record. b 12/06 10:09 T-Sheet-- Draft Copy was scanned into [employer] and attached to record. gb Signatures: Delonte Zambrano RN RN Kaitlyn Lanier Reg Reg gb Aneta BearRN RN jo3 Bakari Tran PA PA btw Kayla Goodwin The chart was reviewed and I authenticate all verbal orders and agree with the evaluation and treatment provided.Attachments: 12/05 15:43 [facility] Payment Agreement [email or web address] 12/06 10:09 T-Sheet-- Draft Copy gb Chart Complete MTDD
--- NOTE | 2016-12-07 16:28 | EDDOCDS ---
Nurse's Notes [facility] Name: Peña Parekh Age: 26 yrs Sex: Male : 1990 Arrival Date: 12/05/2016 Time: 14:40 Bed I2 / M2 Private MD: NO PRIMARY PHYSICIAN, . Diagnosis: Hemorrhage due to internal orthopedic prosthetic devices, implants and grafts Presentation: 12/05 14:45 Presenting complaint: Patient states: released this morning from the hospital after a jo3 fracture repair. Blood was on cast prior to discharge and was outline with perm marker. At home, cast broke open and there is a significant amount of bleeding. Adult Sepsis Screening: The patient does not have new or worsening altered mentation. Patient's respiratory rate is less than 22. Systolic blood pressure is greater than 100. Patient has a qSOFA score of 0- Negative Sepsis Screen. Suicide/Homicide risk assessment- the patient denies having any suicidal and/or homicidal ideations and does not present with any other emotional, behavioral or mental health complaints. Status: Patient is not a student services advisor or dependent. Transition of care: patient was not received from another setting of care. 14:45 Acuity: CLOVER Level 3 jo3 14:45 Method Of Arrival: Walkin/Carried/Asstd jo3 Triage Assessment: 14:48 General: Appears in no apparent distress, Behavior is appropriate for age, cooperative. jo3 HIV screening NA for this visit. Neurological: Level of Consciousness is awake, alert, Oriented to person, place, time. Respiratory: Airway is patent Respiratory effort is even, unlabored. Musculoskeletal: cast to left foot. Obvious blood to plantar aspect. Historical: - Allergies: Amoxicillin; PENICILLINS; - Home Meds: 1. Percocet 5-325 mg Oral tab 1 tab every 6 hours 2. aspirin 325 mg Oral TbEC 1 tab once daily - PMHx: Cystic Fibrosis; - PSHx: Adenoidectomy; Tonsillectomy; Ear Tubes; left ankle surgery; - Social history: Smoking status: Patient uses tobacco products, heavy tobacco smoker. No barriers to communication noted, The patient speaks fluent Irish, Speaks appropriately for age, The patient lives. - Family history: Not pertinent. - : The pt / caregiver states he / she is not on anticoagulants. Home medication list is obtained from the patient. - Exposure Risk Screening:: None identified. Screenin:00 Screening information is obtained from the patient. Fall risk: No risks identified. jmk Assistance ADL's: requires no assistance with activities of daily living. Abuse/DV Screen: The patient / caregiver reports he/she is: not in a situation that causes fear, pain or injury. Nutritional screening: No deficits noted. Advance Directives: Currently, there is no health care proxy. There is no active DNR order. There is no living will. There is no Power of Manager Med Surg. Advance directive information. home support is adequate. Assessment: 15:00 General: Appears NAD skin warm and dry color satisfactory. SLC in place to left leg. jmk STILL PHOTOGRAPHER toes less than 2 sec. posterior aspect of cast with old blood, not extending beyond marked lines. heel area supersaturated with dark red blood. Chux absorbing additional quantity of blood. leg elevated on 2 pillows. Vital Signs: 14:42 BP 143 / 78; Pulse 107; Resp 18 S; Temp 97.7(O); Pulse Ox 98% on R/A; Weight 85.73 kg gr2 (R); Height 6 ft. 1 in. (185.42 cm) (R); Pain 5/10; 14:42 Body Mass Index 24.94 (85.73 kg, 185.42 cm) gr2 Vitals: 14:42 Log In Time: December 05, 2016 at 14:42. gr2 ED Course: 14:41 Patient visited by Yesika Baker. gr2 14:41 Patient moved to Waiting gr2 14:42 NO PRIMARY PHYSICIAN, . is Private Physician. gr2 14:43 Patient visited by Yesika Baker. gr2 14:44 Patient moved to Pre RCE gr2 14:47 Triage Initiated jo3 14:49 Patient visited by Aneta Bear RN. jo3 14:51 Patient moved to I2 / M2 jo3 14:57 Bakari Tran PA is PHCP. btw 14:57 Nikolas Chambers MD is Attending Physician. btw 14:57 Patient visited by Bakari Tran PA. btw 15:[facility] btw 15:27 No IV's were initiated during this patient's visit. No procedures done that require jmk assistance. 15:43 [facility] Payment Agreement was scanned into [employer] and attached to record. ehrmila 12/06 10:09 T-Sheet-- Draft Copy was scanned into [employer] and attached to record. jj Order Results: There are currently no results for this order. Outcome: 12/05 15:21 Discharge ordered by Provider. bt 15:25 Discharge Assessment: Patient awake, alert and oriented x 3. No cognitive and/or jmk functional deficits noted. Patient verbalized understanding of disposition instructions. patient administered narcotics - no. The following High Risk Discharge criteria are identified: None. Discharged to home ambulatory. Condition: good. Discharge instructions given to patient, Instructed on discharge instructions, follow up and referral plans. Demonstrated understanding of instructions. No special radiology studies were completed. Property :Personal belongings accompany Pt. 15:27 Patient left the ED. claudia Signatures: Delonte Zambrano,RN RN Kaitlyn Laneir, Reg Reg Aneta LaytonRN RN Bakari Castillo PA PA btYesika Zambrano gr2 Kayla Goodwin Chart Complete DMITRI
== END 2016-12-05 15:27 | disposition home or self-care (01) ==
LOC: M ED 14:40
DX: M96.830 Postprocedural hemorrhage of a musculoskeletal structure following a musculoskeletal system procedure (principal); S82.852D Displaced trimalleolar fracture of left lower leg, subsequent encounter for closed fracture with routine healing; X58.XXXD Exposure to other specified factors, subsequent encounter; Y92.89 Other specified places as the place of occurrence of the external cause; Y93.89 Activity, other specified; Y99.8 Other external cause status; E84.9 Cystic fibrosis, unspecified; F17.200 Nicotine dependence, unspecified, uncomplicated; Z79.82 Long term (current) use of aspirin; Z88.0 Allergy status to penicillin

== ENCOUNTER 2020-04-22 20:17 | Emergency (ER) | payer MEDICAID, MEDICARE ==
[~2020-04-22] VITALS: Ht 182.9 cm; Wt 77.3 kg
[~2020-04-22 20:17] MED LIST changes: +ASPI-1 PO; -ASPI325T PO; -LEVA750T PO; +LEVA750T7 PO; +PERC5TAB12 PO; -PERC5TAB6 PO; -PROA1AER IN; +PROAAER10 IN
[2020-04-22 20:18] VITALS: BP 124/86
== END 2020-04-22 20:47 | disposition left against medical advice (07) ==
LOC: M ED 20:17
DX: Z53.21 Procedure and treatment not carried out due to patient leaving prior to being seen by health care provider (principal)

== ENCOUNTER 2021-03-24 07:37 | Emergency (ER) | payer MEDICAID ==
[~2021-03-24] VITALS: Ht 182.9 cm; Wt 77.3 kg
[2021-03-24] MEDS ORDERED: BOOSTRIX/ADACEL VACCINE (DIPHTH/PERTUSS/ACELL/TETANUS) 0.5ML SYR IM ONE (08:00)
[2021-03-24] MEDS ORDERED: NS 1,000 ML IV ONE (08:00)
[2021-03-24] MEDS ORDERED: ONDANSETRON 4MG/2ML VIAL IV ONE (08:00)
[2021-03-24] MEDS: MORPHINE 2 MG/ML 1ML VIAL (J2270) IV PRN ×2 (08:23→09:49)
[2021-03-24 08:32] LABS: BASO # 0.1 10^3/uL (0.0-0.2); BASO % 0.5 % (0.0-1.0); EOS # 0.3 10^3/uL (0.0-0.5); EOS % 1.8 % (0.0-3.0); HEMATOCRIT 45.7 % (42.0-52.0); HEMOGLOBIN 14.6 g/dl (13.5-17.5); LYMPH # 2.5 10^3/uL (1.5-5.0); LYMPH % 12.8 % (24.0-44.0); MEAN CORPUSCULAR HEMOGLOBIN 29.6 pg (27.0-33.0); MEAN CORPUSCULAR HGB CONC 31.9 g/dl (32.0-36.5); MEAN CORPUSCULAR VOLUME 92.5 fl (80.0-96.0); MONO # 2.3 10^3/uL (0.0-0.8); MONO % 11.9 % (2.0-8.0); NEUTROPHILS % 72.4 % (36.0-66.0); PLATELET COUNT, AUTOMATED 272 10^3/uL (150-450); RED BLOOD COUNT 4.94 10^6/uL (4.30-6.10)
[2021-03-24 08:46] LABS: INR 0.97; PARTIAL THROMBOPLASTIN TIME 29.7 SECONDS (24.2-38.5); PROTHROMBIN TIME 13.1 SECONDS (12.5-14.3)
[2021-03-24] MEDS ORDERED: ISOVUE-370 76% 100ML VIAL As Ordered ONE (08:48)
[2021-03-24 08:53] LABS: WHITE BLOOD COUNT 19.3 10^3/uL (4.0-10.0)
--- NOTE | 2021-03-24 09:07 | REP ---
INDICATION: Trauma. COMPARISON: Comparison brain CT study is from March 08, 2014.. TECHNIQUE: Helical scanning is acquired. 5 mm axial images were reformatted. Coronal MPR images were generated. FINDINGS: Bone window settings demonstrate an intact bony calvarium. There is no evidence of skull fracture or incidental bony calvarial lesion. The visualized paranasal sinuses appear clear. No intraorbital abnormality is seen. On soft tissue window setting images; the lateral, third, and fourth ventricles are normal in size and position. Zaidi-white differentiation pattern is normal above and below the tentorium. There are is no evidence of intracranial hemorrhage. No mass, edema, infarction, or midline shift is seen. No extra-axial fluid collection is appreciated. IMPRESSION: Negative noncontrast head CT. <Electronically signed by Musa Vidal > 03/24/21 0904
--- NOTE | 2021-03-24 09:11 | REP ---
INDICATION: Trauma. COMPARISON: None. TECHNIQUE: Helical scanning is acquired and overlapping 2 mm high resolution axial images were generated and reviewed at bone and soft tissue window settings. Coronal and sagittal multiplanar re-formations images are generated. FINDINGS: There is no evidence of cervical spine element fracture. No skull base fracture is seen. Cervical vertebral body heights are preserved. Alignment is normal. Facet joints are normally aligned bilaterally at each cervical level on multiplanar re-formations images. There is no evidence of intraspinal or paraspinal hematoma. No extra vertebral abnormality is seen. There is minimal facet hypertrophy on the right at C4-5. There is uncovertebral spurring on the right at C3-4 and to a lesser extent on the left at this level. IMPRESSION: Mild degenerative changes. No fracture or subluxation seen. Otherwise negative CT study of the cervical spine. <Electronically signed by Musa Vidal > 03/24/21 0907
[2021-03-24 09:13] LABS: ALBUMIN 4.5 GM/DL (3.2-5.2); ALT/SGPT 31 U/L (12-78); AMYLASE 43 U/L (25-115); BILIRUBIN,DIRECT 0.2 MG/DL (0.0-0.2); BILIRUBIN,TOTAL 0.5 MG/DL (0.2-1.0); CK-MB VALUE MASS 2.3 NG/ML (<3.6); CPK CREATINE PHOSPHOKINASE 262 U/L (39-308); ETHYL ALCOHOL (ETHANOL) < 0.003 % (0.000-0.010); LIPASE 37 U/L (73-393); MB/CK RELATIVE INDEX 0.88 (< OR =4); TOTAL PROTEIN 7.6 GM/DL (6.4-8.2); TROPONIN I < 0.02 NG/ML (< 0.10)
--- NOTE | 2021-03-24 09:21 | REP ---
INDICATION: Trauma. COMPARISON: 10/19/2003 TECHNIQUE: Standard helical technique after the intravenous administration of 100 cc Isovue 370. No oral bowel preparatory contrast was administered prior to the exam. FINDINGS: The liver, gallbladder, spleen, pancreas, adrenal glands, and kidneys are within normal limits. The abdominal aorta and para-aortic regions are within normal limits. Respiratory motion artifact obscures the detail in the mid abdomen. Limited evaluation of the bowel loops and the mesenteries show no abnormalities. The appendix is well visualized and is within normal limits. There is no evidence of free fluid or free air. The osseous structures are stable and intact. IMPRESSION: CT findings are within normal limits. <Electronically signed by Bart Matthews > 03/24/21 0918
--- NOTE | 2021-03-24 09:26 | REP ---
INDICATION: Trauma COMPARISON: 03/01/2016 TECHNIQUE: Axial contrast enhanced images from the thoracic inlet to the upper abdomen with coronal and sagittal reformations using 75 ml Isovue 370 intravenous contrast material. [address] CT examination was performed using the following dose reduction techniques: Automated exposure control, adjustment of mA and/or kv according to the patient's size, and use of iterative reconstruction technique. FINDINGS: Minimal posterior basilar dependent changes. Lung soler are otherwise clear without consolidation/contusion, effusion, or pneumothorax. Tracheobronchial tree is patent. No axillary, hilar, or mediastinal adenopathy. No evidence for mediastinal trauma. Thoracic aorta, pulmonary vasculature, and heart/pericardium are normal. Musculoskeletal structures are intact and without evidence for acute injury. IMPRESSION: Normal contrast-enhanced chest CT. No acute mediastinal or pleuroparenchymal process. No evidence for acute trauma/injury <Electronically signed by Nahid Gunderson > 03/24/21 0955
--- NOTE | 2021-03-24 09:40 | REP ---
INDICATION: trauma COMPARISON: None. TECHNIQUE: AP and lateral left humerus. FINDINGS: There is no evidence of acute fracture, dislocation, or intrinsic bone disease. IMPRESSION: No fracture or dislocation. <Electronically signed by Humberto Zaidi > 03/24/21 0915
--- NOTE | 2021-03-24 09:41 | REP ---
INDICATION: Trauma. COMPARISON: Comparison chest x-ray is from March 01, 2016. TECHNIQUE: Portable upright AP chest radiograph. FINDINGS: The lungs are well inflated and free of infiltrate. Pleural angles are sharp. Heart size is normal. Pulmonary vasculature is not increased. 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 IMPRESSION: Negative portable chest x-ray.. <Electronically signed by Musa Vidal > 03/24/21 0938
--- NOTE | 2021-03-24 09:41 | REP ---
INDICATION: trauma COMPARISON: None. TECHNIQUE: AP and lateral left forearm. FINDINGS: There is no evidence of acute fracture, dislocation, or intrinsic bone disease. IMPRESSION: No fracture or dislocation. <Electronically signed by Humberto Zaidi > 03/24/21 0919
--- NOTE | 2021-03-24 09:44 | REP ---
INDICATION: trauma COMPARISON: 05/23/2008. TECHNIQUE: Four views left hand. FINDINGS: There is no evidence of acute fracture, dislocation, or intrinsic bone disease. There appears to be an old healed fracture of the proximal 5th metacarpal. IMPRESSION: No fracture or dislocation. <Electronically signed by Humberto Zaidi > 03/24/21 0961
--- NOTE | 2021-03-24 09:45 | REP ---
INDICATION: trauma. COMPARISON: None. TECHNIQUE: Four views of the left foot are provided. FINDINGS: Four views of the left foot demonstrate screw plate fixation hardware in the distal fibula and 2 metallic pins in the medial malleolus of the distal tibia. Overall mineralization pattern is normal. Bones, joints, and soft tissues are otherwise unremarkable. No foot fracture or subluxation seen.. . . IMPRESSION: Status post open reduction internal fixation distal fibula and distal tibia. No acute fracture or subluxation seen.. <Electronically signed by Musa Vidal > 03/24/21 0967
--- NOTE | 2021-03-24 09:46 | REP ---
INDICATION: trauma COMPARISON: Left ankle 12/05/2016. TECHNIQUE: AP and lateral left lower leg. FINDINGS: There is no evidence of acute fracture, dislocation, or intrinsic bone disease.Metallic internal fixation is again seen in the distal tibia and fibula. The ankle mortise is anatomic. IMPRESSION: No fracture or dislocation. <Electronically signed by Humberto Zaidi > 03/24/21 0971
--- NOTE | 2021-03-24 09:46 | REP ---
INDICATION: trauma. COMPARISON: None TECHNIQUE: Two views. FINDINGS: There is no acute fracture or destructive osseous lesion IMPRESSION: As above <Electronically signed by Bart Matthews > 03/24/21 0930
[2021-03-24 10:00] VITALS: BP 120/73
[2021-03-24] MEDS ORDERED: SULF1TAB23 PO (10:28)
[2021-03-24] MEDS ORDERED: BACTRIM 160MG/800MG DS TAB PO ONE (10:30)
--- NOTE | 2021-03-24 20:33 | ECGEPIP ---
[place] - ED Test Date: 2021-03-24 Pat Name: BELL VARGAS Department: Room: - Gender: Male Target Worker: FRANKO : 1990 Requested By: Jonh Robertson Order Number: [id number] Reading MD: Ammy Chatterjee Measurements Intervals Mcdonald Rate: 89 P: 72 GA: 142 QRS: 76 QRSD: 80 T: 61 QT: 364 QTc: 442 Interpretive Statements Normal sinus rhythm NSTTW abnormalities decreased rate 03/01/16 Electronically Signed on 03-24-2021 20:33:38 EDT by Ammy Chatterjee
== END 2021-03-24 10:41 | disposition home or self-care (01) ==
LOC: M ED 07:37
DX: S80.812A Abrasion, left lower leg, initial encounter (principal); S09.90XA Unspecified injury of head, initial encounter; S40.812A Abrasion of left upper arm, initial encounter; V09.20XA Pedestrian injured in traffic accident involving unspecified motor vehicles, initial encounter; Y92.9 Unspecified place or not applicable; Y93.9 Activity, unspecified; Y99.9 Unspecified external cause status; D72.829 Elevated white blood cell count, unspecified; Z88.0 Allergy status to penicillin; Z88.1 Allergy status to other antibiotic agents; Z91.030 Bee allergy status; Z79.51 Long term (current) use of inhaled steroids
CPT/HCPCS: 70450; 71045; 71260; 72125; 73060; 73090; 73130; 73552; 73590; 73630; 74177; 80047; 80076; 82077; 82150; 82550; 82553; 83605; 83690; 85025; 85610; 85730; 86850; 86900; 86901; 90715; 93005; 93041; 94760; 96361; 96372; 96374; 96375; 96376; 99285; J2270; J2405; Q9967